=== PATIENT | female | born 1990 | race Hispanic/Latino ===

== ENCOUNTER → 2020-10-27 12:08 | Outpatient (CLI) | payer OTHER, SELFPAY ==
[2020-10-27] MEDS: COVID-19 VACC #1, MRNA(MOD) 100 MCG/0.5 ML VIAL IM (12:17)
== END ==
PROVIDERS: Visit Provider Internal Medicine
DX: Z23 Encounter for immunization (principal)
CPT/HCPCS: 0011A; 91301

== ENCOUNTER → 2020-11-25 12:08 | Outpatient (CLI) | payer OTHER, SELFPAY ==
[2020-11-25] MEDS: COVID-19 VACC #2, MRNA(MOD) 100 MCG/0.5 ML VIAL IM (12:12)
== END ==
PROVIDERS: Visit Provider Internal Medicine
DX: Z23 Encounter for immunization (principal)
CPT/HCPCS: 0012A; 91301

== ENCOUNTER 2025-07-03 11:48 | Emergency (ER) | payer SELFPAY ==
--- OUTSIDE RECORDS SUMMARY | 2025-07-03 11:50 | XMS_ITS | Encounter Summary ---
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 Role Phone Pcp, None Selected Primary Care Provider Unavail able Encounter Details Date Type Department Care Team (Late st Contact Info) Description 04/23/2018 Community Orders [facility] [address] [place] [address] Sally Vann MD [address] [place] [address]., [address] [place], [place] [id number] Amenorrhea (Primary Dx); LLQ pain Social History Tobacco Use Types Packs/Day Years Used Date Smoking Tobacco: Never Assessed Comments Unknown Sex and Gender Information Value Date Recorded Sex Assigned at Not on file Legal Sex Female 5:19 PM PDT Gender Identity Not on file Sexual Orientation Not on file documented as of this encounter Plan of Treatment Not on file documented as of this encounter Visit Diagnoses Diagnosis Amenorrhea- Primary Absence of menstruation LLQ pain Abdominal pain, left lower quadrant documented in this encounter Additional Health Concerns Infection Onset Date Last Indicated Resolved Time COV19 CONFIRMED/AERO 06/02/2020 06/02/2020 021 2:36 AM PST documented as of this encounter Care Teams Fertilizer Mixer Relationship Specialty Start Date End Date Pcp, None Selected PCP - General 10/31/24 documented as of this encounter
[2025-07-03 12:04] VITALS: BP 131/77; PULSE 65; RESP 12; TEMP 3.3; TEMP 37.9; O2SAT 100; BMI 23.9
--- NOTE | 2025-07-03 12:04 | ED_ITS ---
HPI - Weakness General Chief complaint: Dizziness Stated complaint: Dizzy, blurred vision, generally feeling unwell Time Seen by Provider: 07/03/25 11:51 History of Present Illness HPI Narrative: Patient is a lyric 35-year-old female who presents today with sudden onset left upper quadrant pain. 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 She feels a little weak lightheaded. No fever or chills. No lower abdominal pain at all. She was not lifting turning or twisting. Sedative from work is with her in the room patient agrees that visit or can stay. She has no surgeries takes no medications in his otherwise healthy. Related Data Previous Rx's ?Medication ?Instructions ?Recorded cephalexin 500 mg capsule 500 mg PO BID 5 days #10 cap s 07/03/25 Allergies Allergy/AdvReac Type Severity Reaction Status Date / Time No Known Drug Allergies Allergy Verified 07/03/25 12:04 Patient History Social History Smoking Status: Never smoker Exam Initial Vital Signs Initial Vital Signs: Vital Signs Temperature 37.9 F 07/03/25 12:04 Pulse Rate 65 07/03/25 12:04 Respiratory Rate 12 07/03/25 12:04 Blood Pressure 131/77 07/03/25 12:04 Pulse Oximetry 100 07/03/25 12:04 Oxygen Delivery Method Room Air 07/03/25 12:04 GENERAL: Alert pleasant 35-year-old female and in no acute distress. HEENT: Head atraumatic,EOMI, pupils reactive, face symmetric, moist mucous membranes CARDIOVASCULAR: Regular rate and rhythm without murmurs, rubs or gallops. RESPIRATORY: Breath sounds equal bilaterally, no wheezes rales or rhonchi. ABDOMEN: Soft, left upper quadrant no tenderness appreciated no right upper quadrant pain negative Hurst's sign no epigastric pain no lower abdominal pain : No CVA tenderness EXTREMITIES: Normal range of motion, no clubbing or edema. Neurovascularly intact NEUROLOGICAL: Alert and oriented x4.Normal gait and speech. SKIN: Warm, dry, no laceration, no petechiae, no rashes or lesions. Course Orders Ordered: ED Orders 07/03/25 12:25 CBC Auto Diff [Complete Blood Count AUTO DIFF] Stat CMP [Comprehensive Metabolic Panel] Stat Lipase Stat 07/03/25 13:07 Urine Culture Stat Urine Microscopic Stat Discontinued Medications Sodium Chloride (Normal Saline 0.9%) 500 mls @ 1,000 mls/hr IV BOLUS ONE Stop: 07/03/25 12:37 Last Infusion: 07/03/25 13:04 Dose: Infused Documented By: Admin: 07/03/25 12:25 Dose: 1,000 mls/hr Documented By: [facility] Vital Signs Vital signs: Vital Signs - 8 hr 07/03/25 12:04 07/03/25 14:33 Temperature 37.9 F Pulse Rate 65 68 Respiratory Rate 12 18 Blood Pressure 131/77 119/78 Pulse Oximetry 100 95 Oxygen Delivery Method Room Air Room Air MDM - Weakness Lab Data 07/03/25 12:25 07/03/25 12: Labs: Lab Results 07/03/25 07/03/25 Range/Units 12: 13:07 WBC 6.5 X10^3/uL RBC 4.65 X10^6/uL Hgb 14.2 g/dL Hct 42.2 % MCV 90.9 fL MCH 30.5 PG MCHC 33.6 % RDW 13.1 % Plt Count 267 X10^3/uL Neut % (Auto) 59.9 % Lymph % (Auto) 28.5 % [place] % (Auto) 6.0 % Eos % (Auto) 3.4 % Baso % (Auto) 2.2 % Neut # (Auto) 3900 /uL Lymph # (Auto) 1800 /uL [place] # (Auto) 400 /uL Eos # (Auto) 200 /uL Baso # (Auto) 100 /uL Sodium 139 (137-145) mmol/L Potassium 4.1 (3.4-5.1) mmol/L Chloride 104 (98-107) mmol/L Carbon Dioxide 23 (22-32) mmol/L BUN 13 (7-17) mg/dL Creatinine 0.79 (0.52-1.04) mg/dL Estimated GFR > 60 (>60) mL/min BUN/Creatinine Ratio 16.5 (6-22) Glucose 96 (70-99) mg/dL Calcium 8.8 (8.4-10.2) mg/dL Total Bilirubin 0.5 (0.2-1.3) mg/dL AST 43 H (14-36) IU/L ALT 45 H (<35) IU/L Alkaline Phosphatase 74 (38-126) U/L Total Protein 8.4 H (6.3-8.2) g/dL Albumin 4.7 (3.5-5.0) g/dL Globulin 3.7 (1.7-4.1) g/dL Albumin/Globulin Ratio 1.3 (1.0-2.8) Lipase 64 (23-300) U/L Urine RBC 0-1/hpf (0-5/HPF) Urine WBC 0-1/hpf (0-5/HPF) Ur Squamous Epith Cells None seen (0-5/HPF) Urine Bacteria Many (>30) H (None) Ur Culture Indicated? Specimen cultured Vol Urine Centrifuged 10ml (spun) Point of Care Testing Test Results Negative Urine Dip Bedside Urine Glucose Negative Bedside Urine Bilirubin - Negative Bedside Urine Ketone - Negative Urine Specific Richards 1.020 Bedside Urine Occult Blood + Bedside Urine pH 6.0 Bedside Urine Protein - Negative Bedside Urine Urobilinogen - Negative Bedside Urine Nitrite + Positive Bedside Urine Leukocytes +/- 15 Esterase MDM Narrative Medical decision making narrative: Patient is a healthy 35 year old female presenting today with sudden onset left upper quadrant pain. Exam is benign no peritoneal signs no epigastric pain. Blood work has been reviewed overall reassuring without leukocytosis or elevated liver enzymes. Urinalysis is negative for but positive for nitrates concerning for UTI. No evidence of sepsis. She got 500 cc of fluid overall feeling better. She did not pass out she did not have a syncopal episode no vasovagal reaction Discharge Plan Departure Patient Disposition: Home Clinical Impression: UTI (urinary tract infection) Instructions: DI for Urinary Tract Infection (UTI) Activity Restrictions/Additional Instructions: *You have been diagnosed with UTI *What to do: At this time unclear what caused your left upper quadrant pain *Continue to take medications as directed Keflex 500 mg twice a day for 5 days *Follow up with your primary care provider in 2-3 days or call [phone] *Return to ER if you should have increasing pain passing [or] any new, worsening or concerning symptoms Prescriptions: New cephalexin 500 mg capsule 500 mg PO BID 5 Days Qty: 10 0RF Stand Alone Forms: Patient Portal/API
[2025-07-03] MEDS: SODIUM CHLORIDE 0.9% 500 ML 1000 ML IV (12:25)
[2025-07-03 12:38] LABS: Add Manual Diff / Slide Review NO; Hematocrit 42.2 %; Hemoglobin 14.2 g/dL; Lymphocytes Absolute Auto 1800 /uL; Mean Corpuscular HGB Conc 33.6 %; Mean Corpuscular Hemoglobin 30.5 PG; Mean Corpuscular Volume 90.9 fL; Platelet Count 267 X10^3/uL
[2025-07-03 14:00] LABS: Culture Indicated Urine Specimen Cultured
[2025-07-03 14:04] LABS: Alanine Aminotransferase 45 IU/L (<35); Albumin 4.7 g/dL (3.5-5.0); Albumin Globulin Ratio 1.3 (1.0-2.8); Alkaline Phosphatase 74 U/L (38-126); Blood Urea Nitrogen 13 mg/dL (7-17); Calcium 8.8 mg/dL (8.4-10.2); Carbon Dioxide 23 mmol/L (22-32); Chloride 104 mmol/L (98-107); Estimated Glomerular Filt Rate > 60 mL/min (>60); Globulin 3.7 g/dL (1.7-4.1); Glucose 96 mg/dL (70-99); HEMOLYSIS < 15 (0-50); Lipase 64 U/L (23-300); Potassium 4.1 mmol/L (3.4-5.1); Sodium 139 mmol/L (137-145); Total Protein 8.4 g/dL (6.3-8.2)
[2025-07-03 14:33] VITALS: BP 119/78; PULSE 68; RESP 18; O2SAT 95
== END 2025-07-03 14:35 | disposition home or self-care (01) ==
PROVIDERS: Emergency Provider Emergency Medicine
DX: N39.0 Urinary tract infection, site not specified (principal); H53.8 Other visual disturbances; R10.12 Left upper quadrant pain; R53.1 Weakness
CPT/HCPCS: 36415; 80053; 81003; 81015; 81025; 83690; 85025; 87077; 87086; 87186; 96360; 99284; J7040